=== PATIENT | male | born 1930 | race Caucasian/White ===

== ENCOUNTER 2018-05-30 05:29 | Inpatient (IN) | payer OTHER ==
[~2018-05-30] VITALS: Ht 177.8 cm; Wt 92.1 kg
--- NOTE | ~2018-05-30 | OP ---
[address] [address] OPERATIVE REPORT Name: ARCHIE VIEIRA Room: [address] IN M.R.#: [id number] Admission: 05/30/18 Attend Phys: Juan Nguyen MD Discharge: Date of : 09/[birth year] Report #: [id number] THIS REPORT FOR: //name// CC: Moise Colindres DO REFERRING PHYSICIAN: Kaleigh Ireland DO. PREOPERATIVE DIAGNOSES: Right colon mass with partial small-bowel obstruction. 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 PROCEDURE: Diagnostic laparoscopy converted to laparotomy with lysis of adhesions, extended right hemicolectomy with ileotransverse anastomosis and omental patch, partial omentectomy and peritoneal biopsy with frozen section. SURGEON: Dakota Jean DO. CLINICAL PHLEBOTOMIST: Dr. Judit Broussard. SECOND CMS EXPERT: Dr. Mandie Hendrickson. ANESTHESIA: General endotracheal. ESTIMATED BLOOD LOSS: 25 mL. COMPLICATIONS: None. DESCRIPTION OF PROCEDURE: After obtaining proper consents and discussing risks and complications with the patient and his family, he was taken to the operating room, laid on the supine position, administered general anesthesia. He was then prepped and draped in the usual fashion. Timeout was performed. We confirmed the appropriate patient and procedure. Preoperative antibiotics had been given. SCDs were in place. We then made a small supraumbilical skin incision with a #11 scalpel blade. This was carried down through the skin into the subcutaneous tissue using electrocautery for hemostasis. Once we encountered the fascia, there was noted to be a firm nodular mass in the fascia. We elected to excise this as it was somewhat concerning since the patient had no previous abdominal surgeries. When we excise this, it did involve part of the peritoneum as well. This was sent off for frozen section. While we awaited frozen section, we continued with our laparoscopy since the peritoneum and fascia had already been opened by excising this abdominal wall mass. We then placed 2-0 Vicryl sutures in a [id number] fashion to secure the Alpesh trocar, which was then inserted and insufflation was begun. Once insufflation was complete, [place] [address] OPERATIVE REPORT Name: ARCHIE VIEIRA Room: [address] IN [facility]#: [id number] Admission: 05/30/18 Attend Phys: Juan Nguyen MD Discharge: Date of : 09/28/[birth year] Report #: [id number] visual inspection of the anterior abdominal organs was performed. This immediately revealed what appeared to be multiple peritoneal metastases. There was also some ascites, especially surrounding the liver. In the right lobe of the liver, we identified multiple areas that appeared to be liver metastasis as well. We were then able to also visualize the omentum and the right colon, which also appeared to be firmly matted. The right colon and the abdominal wall, there were attachments, which also appeared to be metastatic in nature and also down in the pelvis, we identified the same appearance of multiple peritoneal metastasis. At this point, I placed another 5 mm trocar in the subxiphoid position and another 5 mm trocar was placed in the left upper quadrant. We then attempted to free up the right colon using electrocautery and blunt dissection, however. As the omentum appeared to be completely matted and attached to the right colon mass, it was very difficult to move the omentum out of the way and after approximately 30 minutes or so of attempting to free this area, we elected to convert to an open procedure. At this point, we stopped the insufflation. All air was released. The trocars were removed. We then extended the supraumbilical incision to meet the subxiphoid incision. This was done using a #10 scalpel blade. Electrocautery was then used to dissect down to the fascia and the fascia and peritoneum were then opened for the entire length of the incision. I then explored the entire abdomen and again identified multiple liver metastases. The gallbladder was markedly distended, but did not appear to be diseased and this was most likely from the patient's n.p.o. status. There was a very firm mass in the right abdominal wall, which was adherent to the abdominal wall as well. The omentum was matted and attached to this mass as well. The terminal ileum was also involved with this mass. At this point, I took down the white line of Toldt along the right pericolic gutter all the way up to the hepatic flexure and then around the hepatic flexure, taking down the omental attachments to the transverse colon between the gastrocolic omentum. Once this area was freed, I then freed the terminal ileum as well using electrocautery and blunt dissection. I was able to bring the entire right colon to the midline and through the incision. At this point, the omentum was firmly attached, so we elected to do a partial omentectomy, removing the upper portion of the omentum, which was attached to the transverse colon using the LigaSure Impact device. Once this was done, we were then able to move the colon more freely and we elected to perform resection at the terminal ileum. An avascular window in the mesentery was opened and a SAMI 60 was fired across this area. I then chose a distal resection margin beyond the right branch of the middle colic artery and the mesentery of the transverse colon was then opened and a SAMI 60 was fired across this as well. I then used the LigaSure Impact device to sequentially clamp and divide the mesentery taking the right branch of the middle colic artery and the ileocolic artery and then the specimen was passed off. Once we did this, we were then preparing for reanastomosis of the terminal ileum to the transverse colon; however, we identified another area where the omentum had what appeared to be another mass firmly adherent to a portion of the transverse colon. I was unable to separate this and was concerned that this would lead to obstruction later on, so we went ahead and [place] [address] OPERATIVE REPORT Name: ARCHIE VIEIRA Room: [address] IN [facility]#: [id number] Admission: 05/30/18 Attend Phys: Juan Nguyen MD Discharge: Date of : 09/28/29 Report #: [id number] beyond the left branch of the middle colic artery and resected another portion of transverse colon along with more omentum and then passed that off as specimen. We then performed the anastomosis of the terminal ileum to the distal transverse colon in a [id number] fashion using a SAMI stapler. We opened an enterotomy in the small bowel and a colotomy in the transverse colon. The SAMI stapler was then inserted and a [id number]-vm-[id number] anastomosis was performed. We then closed the colotomy using a TA 60 stapler. Two crotch sutures of 2-0 Vicryl suture were placed. We then also closed the mesentery using a 2-0 Vicryl suture to prevent any internal hernias from forming. I also placed an omental patch of a small vascularized area of the omentum, was placed over top of the anastomosis and sewed in place using 2-0 Vicryl suture. We then copiously irrigated the abdominal cavity. We then closed the peritoneum and fascia together using a running #1 looped PDS suture. The subcutaneous tissues were closed using 3-0 Vicryl suture. Skin was closed using opal. A Prevena wound VAC dressing was then placed. Sponge, needle and instrument counts were all correct x 3 at the end of the procedure. The patient was then awakened in the operating room and transported to the recovery room in stable condition. By: [id number] Jean DO /lydia
[~2018-05-30 05:29] MED LIST: FLOMAX0.4 MG PO; SIMVASTATIN40 MG PO
[2018-05-30 05:35] VITALS: BP 136/92
[2018-05-30 06:02] LABS: HEMATOCRIT 48.4 % (42.0-52.0); HEMOGLOBIN 15.8 gm/dL (14.0-18.0); MCHC 32.6 g/dL (28.0-37.0); MPV 8.1 fl. (7.2-11.1); NUCLEATED RBCS 0 /100WBC; PLATELET COUNT* 259 thou/uL (150-400); RBC 5.26 mil/uL (4.50-6.00); RDW-CV 13.8 % (10.5-14.5); WBC 11.9 thou/uL (4.0-11.0)
[2018-05-30 06:06] LABS: ANION GAP 10 mmol/L (7-16); BUN 12 mg/dL (7-18); CALCIUM 8.7 mg/dL (8.5-10.1); CHLORIDE 107 mmol/L (98-107); CO2 25 mmol/L (21-32); CREATININE 1.2 mg/dL (0.6-1.3); GLUCOSE 155 mg/dL (70-99); POTASSIUM 4.2 mmol/L (3.5-5.1); SODIUM 142 mmol/L (136-145)
[2018-05-30 06:13] LABS: ALBUMIN 3.5 g/dL (3.4-5.0); ALKALINE PHOSPHATASE 72 U/L (46-116); LIPASE 111 U/L (73-393); SGOT 17 U/L (15-37); SGPT 16 U/L (30-65); TOTAL BILIRUBIN 0.5 mg/dL (<0.1-1.0); TOTAL PROTEIN 6.9 g/dL (6.4-8.2); TROPONIN-I LEVEL <0.06 ng/mL (<0.06)
[2018-05-30 07:08] LABS: URINE CLARITY CLEAR; URINE COLOR YELLOW; URINE PROTEIN 1+ (Negative); URINE SPECIFIC GRAVITY 1.015 (1.005-1.030)
[2018-05-30 07:09] LABS: URINE BILIRUBIN NEGATIVE (Negative); URINE BLOOD TRACE (Negative); URINE GLUCOSE-RANDOM NEGATIVE (Negative); URINE KETONES TRACE (Negative); URINE LEUKOCYTES-REFLEX NEGATIVE (Negative); URINE NITRITE-REFLEX NEGATIVE (Negative); URINE UROBILINOGEN 0.2 E.U./dl (0.2-1.0)
[2018-05-30 07:38] LABS: ABSOLUTE LYMPHOCYTES 1.8 thou/uL (0.8-5.3); ABSOLUTE MONOCYTES 0.2 thou/uL (0.0-1.2); ABSOLUTE NEUTROPHILS 9.9 thou/uL (1.6-8.1); PLATELET ESTIMATE ADEQUATE
[2018-05-30 07:49] VITALS: BP 129/75
[2018-05-30 08:18] VITALS: BP 129/75
--- NOTE | 2018-05-30 10:06 | NUR ---
PATIENT CAME TO THE FLOOR FROM THE ER VIA CART WITH FAMILY. NO COMPLAINTS AT THIS TIME. VITAL SIGNS STABLE ON ROOM AIR. ROOM ORIENTATION AND ADMISSION ASSESSMENT DONE. QUESTIONS ANSWERED FOR PATIENT AND FAMILY. CALL LIGHT IS IN REACH. WILL CONTINUE TO MONITOR.
[2018-05-30] MEDS ORDERED: ATIVAN0.5 MG PO (10:15)
[2018-05-30] MEDS ORDERED: ZOLOFT50 MG PO (10:20)
[2018-05-30] MEDS ORDERED: PRILOSEC 20 MG20 MG PO (10:20)
[2018-05-30 16:38] VITALS: BP 107/64
--- NOTE | 2018-05-30 16:46 | NUR ---
SW attempted to meet with pt but at this time, pt had a room full of visitors. Pt has support from and children. SW to continue to follow to assist with safe dc planning.
--- NOTE | 2018-05-30 17:49 | NUR ---
PATIENT IS ALERT AND ORIENTED VERY PLEASANT, VITAL SIGNS STABLE ON ROOM AIR. NO COMPLAINTS OF ANY KIND TODAY, FAMILY HAS BEEN AT BEDSIDE MOST OF THE DAY. PATIENT IS NPO EXCEPT ICE CHIPS. CALL LIGHT IS IN REACH. WILL CONTINUE TO MONITOR.
[2018-05-30 20:00] VITALS: BP 97/47
[2018-05-31 04:16] LABS: HEMATOCRIT 42.8 % (42.0-52.0); MCH 30.3 pg (26.0-34.0); MCHC 32.3 g/dL (28.0-37.0); MCV 93.9 fL (80.0-100.0); RBC 4.56 mil/uL (4.50-6.00); RDW-CV 13.5 % (10.5-14.5); WBC 7.8 thou/uL (4.0-11.0)
[2018-05-31 04:25] LABS: ALBUMIN 2.6 g/dL (3.4-5.0); CALCIUM 7.7 mg/dL (8.5-10.1); CREATININE 1.1 mg/dL (0.6-1.3); MAGNESIUM 1.8 mg/dL (1.8-2.4); POTASSIUM 3.9 mmol/L (3.5-5.1); TOTAL BILIRUBIN 0.6 mg/dL (<0.1-1.0); TOTAL PROTEIN 5.4 g/dL (6.4-8.2)
[2018-05-31 04:41] LABS: HEMOGLOBIN 13.8 gm/dL (14.0-18.0)
[2018-05-31 05:22] VITALS: BP 111/58
--- NOTE | 2018-05-31 07:46 | NUR ---
pt awake alert and oriented, pt medicated for abdominal pain that he says comes and goes and that improves from rate of 8/10 to 2/10 by this morning, pts blood pressures are soft throughout the night as low as 97/47, continues on iv fluids, pt up to bathroom with standby assist, fall precautions in place
[2018-05-31 10:00] VITALS: BP 115/66
[2018-05-31 12:00] VITALS: BP 94/54
[2018-05-31 16:00] VITALS: BP 113/57
--- NOTE | 2018-05-31 17:58 | NUR ---
PATIENT IS ALERT AND ORIENTED TODAY VERY PLEASANT. FAMILY AT BEDSIDE MOST OF THE DAY. ABLE TO HAVE CLEAR LIQUIDS TODAY, UP WITH STAND BY TO THE RESTROOM, BLOOD PRESSURE HAS BEEN SOFT TODAY PATIENT HAS BEEN ASYMPTOMATIC. SOME PAIN THAT IS CONTROLLED WITH IV PAIN MEDICATIONS. CALL LIGHT IS IN REACH, WILL CONTINUE TO MONITOR.
[2018-05-31 20:20] VITALS: BP 145/76
[2018-06-01 04:34] LABS: HEMOGLOBIN 12.9 gm/dL (14.0-18.0); MCH 30.6 pg (26.0-34.0); MCHC 33.1 g/dL (28.0-37.0); MCV 92.7 fL (80.0-100.0); MPV 8.9 fl. (7.2-11.1); RBC 4.21 mil/uL (4.50-6.00); RDW-CV 13.5 % (10.5-14.5); WBC 6.5 thou/uL (4.0-11.0)
[2018-06-01 04:58] LABS: MAGNESIUM 1.8 mg/dL (1.8-2.4); PHOSPHORUS* 2.5 mg/dL (2.5-4.9); POTASSIUM 3.8 mmol/L (3.5-5.1)
--- NOTE | 2018-06-01 05:07 | NUR ---
PT SLEPT ON AND OFF THIS SHIFT. ASSESSMENT DOCUMENTED. MEDS GIVEN PER E-AUG. IV PATENT, FLUIDS INFUSING. MEDS GIVEN PER E-AUG. PT REPORTED FEELING ANXIOUS AT THE BEGINING OF THIS SHIFT, REQUESTING SOMETHING FOR ANXIETY. NOTIFIED, ORDERS RECIVED. PAIN MEDS GIVEN PER E-AUG. PT DC'D IV THIS SHIFT. NEW IV STARTED, FLUIDS RESUMED. WILL CONTINUE WITH PLAN OF CARE.
[2018-06-01 08:30] VITALS: BP 123/61
--- NOTE | 2018-06-01 15:30 | EKG ---
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
--- NOTE | 2018-06-01 19:49 | NUR ---
Assumed care of pt at 0700, pt in bed relaxing watching TV. Pt up ad gladys throughout this shift, is able to make needs known. Pt expressed to this nurse that he would like to have his Ativan at bedtime tonight. This nurse passed along the info in report to oncoming nurse. Hourly rounding was maintained.
[2018-06-01 22:29] LABS: ANION GAP 9 mmol/L (7-16); BUN 7 mg/dL (7-18); CALCIUM 8.3 mg/dL (8.5-10.1); CHLORIDE 108 mmol/L (98-107); CO2 26 mmol/L (21-32); CREATININE 0.9 mg/dL (0.6-1.3); GLUCOSE 87 mg/dL (70-99); POTASSIUM 3.6 mmol/L (3.5-5.1); SODIUM 143 mmol/L (136-145)
[2018-06-01 22:36] LABS: MAGNESIUM 2.1 mg/dL (1.8-2.4); TROPONIN-I LEVEL <0.06 ng/mL (<0.06)
[2018-06-02] VITALS: BP 103/54; BP 119/59
[2018-06-02 04:00] VITALS: BP 140/71
--- NOTE | 2018-06-02 05:47 | NUR ---
PT SLEPT MOST OF SHIFT. ASSESSMENT DOCUMENTED. MEDS GIVEN PER E-AUG. DURING ASSESSMENT PATIENTS HEARTRATE WAS 30'S PER PULSE OX AND PER RADIAL PALPITATION. PT A&O NO REPORTS OF CHEST PAIN OR DISCOMFORT, BP STABLE, EKG DONE, AND PATIENT PLACED ON TELE MONITOR. DR NOTIFIED, ORDERS RECIEVED. CARDIOLOGY CONSULTED, SPOKE WITH DR SALAS WHO AGREED WITH LABS ORDERED. SURGERY NOTIFIED OF CARDIAC CHANGE. NO REPORTS OF PAIN THIS SHIFT. WILL CONTINUE WITH PLAN OF CARE.
[2018-06-02 09:23] VITALS: BP 140/71
--- NOTE | 2018-06-02 10:27 | EKG ---
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: [facility] : 1930 Requested By: Jose Luis Chakraborty Order Number: [id number] Bob MD: Martin Tomas Measurements Intervals [place] Rate: 50 P: 33 [place]: 179 QRS: 29 QRSD: 106 T: 2 QT: 427 QTc: 390 Interpretive Statements Sinus rhythm Ventricular trigeminy Compared to ECG 05/30/2018 05:40:15 Ventricular premature complex(es) now present Electronically Signed On 06-02-2018 10:27:36 PAPER CONE MAKER by Martin Tomas [email or web address] <ELECTRONICALLY SIGNED> By: Martin Tomas MD, [facility] 06/02/18 1027 17 17 Martin Tomas MD, [facility] /EPI
--- NOTE | 2018-06-02 13:00 | NUR ---
PT.IN SURGERY AND NOT BACK TO FLOOR. CM WILL SEE TOMORROW.
--- NOTE | 2018-06-02 17:38 | NUR ---
PATIENT IS ALERT AND ORIENTED TODAY, PLEASANT. HAD SURGERY TODAY AND HAS BEEN RESTING SINCE COMING UP FROM THE OR. PAIN IS SOMEWHAT CONTROLLED WITH IV PAIN MEDICATION. HAS A WOUND VAC AND ABDOMINAL BINDER ON. CALL LIGHT IS IN REACH, BED ALARM IS ON. WILL CONTINUE TO MONITOR.
[2018-06-02 19:40] VITALS: BP 116/69
[2018-06-03] VITALS: BP 131/64
[2018-06-03 03:45] LABS: HEMATOCRIT 44.5 % (42.0-52.0); HEMOGLOBIN 14.5 gm/dL (14.0-18.0); MCH 30.4 pg (26.0-34.0); MCHC 32.5 g/dL (28.0-37.0); MCV 93.5 fL (80.0-100.0); MPV 8.9 fl. (7.2-11.1); RBC 4.76 mil/uL (4.50-6.00); RDW-CV 13.6 % (10.5-14.5); WBC 10.6 thou/uL (4.0-11.0)
[2018-06-03 04:00] VITALS: BP 120/56
[2018-06-03 04:23] LABS: ANION GAP 12 mmol/L (7-16); BUN 8 mg/dL (7-18); CALCIUM 7.9 mg/dL (8.5-10.1); CHLORIDE 108 mmol/L (98-107); CHOLESTEROL 90 mg/dL (<200); CO2 21 mmol/L (21-32); GLUCOSE 155 mg/dL (70-99); HDL CHOLESTEROL 40 mg/dL (>40); LDL CHOLESTEROL 41 mg/dL (<100); POTASSIUM 3.9 mmol/L (3.5-5.1); SERUM ASSESSMENT Clear; SODIUM 141 mmol/L (136-145); TC:HDL 2.3 Ratio (Not establshd); TRIGLYCERIDE 47 mg/dL (<150); VLDL 9 mg/dL (<40)
--- NOTE | 2018-06-03 06:08 | NUR ---
PT SLEPT MOST OF SHIFT. ASSESSMENT DOCUMENTED. MEDS GIVEN PER E-AUG. IV PATENT, FLUIDS INFUSING. MEDS GIVEN PER E-AUG. PAIN MEDICATION GIVEN ONCE THIS SHIFT PER E-AUG. WOUNDVAC DRESSING INTACT WELL AND BANDAID OVER LAP SITE. ABD BINDER IN PLACE. PT TRIED TO CLIMB OUT OF BED ONCE THIS SHIFT. AT THAT TIME PATIENTS HEART RATE INCREASED TO 170'S BUT WENT BACK DOWN AFTER PATIENT LAYED DOWN. PT DENIED CHEST PAIN AND SOA. ANDERSON IN PLACE DRAINING DEPENDANTLY. TELE MONITOR READING SR WITH PVCS MOST OF SHIFT. WILL CONTINUE WITH PLAN OF CARE.
[2018-06-03 07:45] VITALS: BP 105/60
--- NOTE | 2018-06-03 10:04 | CON ---
[address] [address] CONSULTATION Name: ARCHIE VIEIRA Room: [address] IN M.R.#: [id number] Admission: 05/30/18 Attend Phys: Juan Nguyen MD Discharge: Date of : [birth year] Report #: [id number] THIS REPORT FOR: //name// CC: Juan ALFAROMI [facility] DATE OF SERVICE: 06/02/2018 HISTORY OF PRESENT ILLNESS: The patient is an 87-year-old white male who I was asked to see in the hospital today after he was noted to have an abnormal ECG. History is obtained from the patient. There are no old records. The patient has no previous history of heart disease. He goes to [facility] for his care. He does go for a walk every day. He came to the Emergency Room 2 days ago. Apparently, he awakened during the night with abdominal pain. He vomited. Family members brought him to the Emergency Room. He denied any blood in his vomit. He has had no diarrhea or blood in stool. He was seen by the surgical service. He was felt to have small-bowel obstruction. There is also a colon mass. He is scheduled to undergo surgery. On the monitor, he was noted to have an abnormal ECG. Preop cardiac evaluation was requested. He denies a history of chest pain. He does get short of breath if he exerts himself, but has had no edema. He notes occasional lightheadedness, no palpitations or syncope. PAST MEDICAL HISTORY: He has had knee surgery, prostate implant for cancer, surgery on his right arm. He has a history of hyperlipidemia, but there is no history of high blood pressure or diabetes. He has macular degeneration. He is hard of hearing and has a hearing aid. MEDICATIONS: Include Flomax, simvastatin. ALLERGIES: He has no known drug allergies. FAMILY HISTORY: His father of heart attack in his 40s. SOCIAL HISTORY: He is . He and his live in [place]. He quit smoking years ago. No alcohol abuse. REVIEW OF SYSTEMS: He has had no history of stroke, asthma, peptic ulcer disease, liver disease, kidney disease, psychiatric illness. He has dry skin. PHYSICAL EXAMINATION: GENERAL: Elderly male, lying in bed. He appeared in no acute distress. VITAL SIGNS: He has a blood pressure of 120/60, pulse 60. He is afebrile. HEENT: He is anicteric. Conjunctivae pink. Mucous members moist. NECK: Veins do not appear distended. No carotid bruits[place] [address] CONSULTATION Name: ARCHIE VIEIRA Room: [address] IN [facility]#: [id number] Admission: 05/30/18 Attend Phys: Juan Nguyen MD Discharge: Date of : [birth year] Report #: [id number] CHEST: Clear to auscultation. CARDIOVASCULAR: Regular rate and rhythm. No significant murmur. ABDOMEN: Soft. EXTREMITIES: Had no edema. Posterior tibial pulse 2+ bilaterally. SKIN: Warm, dry. NEUROLOGIC: Nonfocal. LYMPH: No adenopathy. MUSCULOSKELETAL: No joint effusion. LABORATORY DATA: ECG on admission showed a sinus rhythm with nonspecific ST-segment changes. On the monitor, he was noted to have sinus bradycardia with PVCs in a pattern of trigeminy. His workup so far included abdominal films that showed partial small-bowel obstruction. CT scan of the abdomen and pelvis showed possible colon mass, small-bowel obstruction, diverticulitis, gallstones. His lab work, sodium 143, creatinine 0.9. His albumin is 2.6. Troponin 0.06. White blood cell count 6.5, hemoglobin 15.8. IMPRESSION AND RECOMMENDATIONS: 1. Premature ventricular contractions. I would recommend checking an echocardiogram. 2. Bradycardia. I would avoid beta blockers. 3. Hyperlipidemia. The patient is on a statin drug. 4. History of prostate cancer. 5. Hard of hearing. 6. Macular degeneration. 7. Small-bowel obstruction and abdominal mass. The patient was scheduled for laparotomy. The patient appears to have no cardiac contraindication to surgery. However, he will be at risk for cardiac complications because of his advanced age and history of hyperlipidemia. I will recommend no further cardiac evaluation prior to surgery. I would continue to monitor the patient after surgery. <ELECTRONICALLY SIGNED> By: Martin Tomas MD, FACC 06/03/18 1004 0909 0006Martin Tomas MD, FACC /nt
[2018-06-03 12:01] VITALS: BP 95/57
--- NOTE | 2018-06-03 13:24 | NUR ---
CM ASSESSMENT: MET WITH PT AND FAMILY IN ROOM. PT LIVES WITH WHO IS PRIMARILY WC BOUND. PT HAD SURGERY YESTERDAY ON A COLON MASS. PT WALKS APPROX 1 MILE EVERYDAY. HE DOES NOT DRIVE AT NIGHT D/T POOR VISION. PT AND FAMILY AGREE THAT PLAN OF HOME WITH HH INSTEAD OF SNU. PT HAS MEDICARE AND RES Software BENEFITS. PT HAS NOT USED HH IN THE PAST
[2018-06-03 16:00] VITALS: BP 130/71; BP 132/71
--- NOTE | 2018-06-03 16:26 | EKG ---
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1930 Requested By: Dario Broussard Order Number: [id number] Reading MD: Jessee Avila Measurements Intervals [place] Rate: 70 P: 40 RI: 169 QRS: 41 QRSD: 103 T: 137 QT: 401 QTc: 433 Interpretive Statements Sinus rhythm Multiple ventricular premature complexes Borderline low voltage, extremity leads Nonspecific T abnormalities, lateral leads Compared to ECG 06/01/2018 21:18:07 T-wave abnormality now present Electronically Signed On 06-03-2018 16:26:01 QUALITY LAB TECHNICIAN by Jessee Avila [email or web address] <ELECTRONICALLY SIGNED> By: Jessee Avila MD, FACC 06/03/18 1626 Jessee Avila MD, FAC /EPI
--- NOTE | 2018-06-03 16:43 | 2DMMODE ---
[place] [address] 2 D/M-MODE ECHOCARDIOGRAM Name: ARCHIE VIEIRA Room: [address] [facility] IN [facility]#: [id number] Admission: 05/30/18 Attend Phys: Juan Nguyen, Discharge: Date of : [birth year] Date of Service: 06/03/18 1643 Report #: [id number] THIS REPORT FOR: //name// APPROVED REPORT Study performed: 06/03/2018 14:53:13 EXAM: Comprehensive 2D, Doppler, and color-flow Echocardiogram Patient Location: In-Patient Room #: [facility] Status: routine BSA: 2.53 HR: 62 bpm BP: 95/57 mmHg Other Information Study Quality: Fair Technically limited study due to inability to position patient. Indications Abnormal ECG 2D Dimensions IVSd: 10.67 (7-11mm) LVOT Diam: 20.37 (18-24mm) LVDd: 44.69 mm PWd: 9.87 (7-11mm) Ascending Ao: 28.05 (22-36mm) LVDs: 30.31 (25-40mm) Aortic Root: 25.77 mm Volumes Left Atrial Volume (Systole) LA ESV Index: 11.60 mL/m2 Aortic Valve AoV Peak Travis.: 1.26 m/s AO Peak Gr.: 6.34 mmHg LVOT Max P.28 mmHg AO Mean Gr.: 3.48 mmHg LVOT Mean P.27 mmHg LVOT Max V: 1.03 m/s AO V2 VTI: 20.05 cm LVOT Mean V: 0.70 m/s MARJORIE (VTI): 3.21 cm2 LVOT V1 VTI: 19.77 cm Mitral Valve E/A Ratio: 0.77 MV Decel. Time: 211.34 [place] [address] 2 D/M-MODE ECHOCARDIOGRAM Name: ARCHIE VIEIRA Room: [address] IN .R.#: [id number] Admission: 05/30/18 Attend Phys: Juan Nguyen, Discharge: Date of : [birth year] Date of Service: 06/03/18 1643 Report #: [id number] MV E Max Travis.: 0.58 m/s MV PHT: 61.29 ms MVA (PHT): 3.59 cm2 TDI E/Lateral E': 7.25 E/Medial E': 8.29 Medial E' Travis.: 0.07 m/s Lateral E' Travis.: 0.08 m/s Pulmonary Valve PV Peak Travis.: 0.70 m/s PV Peak Gr.: 1.99 mmHg Tricuspid Valve RAP Estimate: 5.00 mmHg TR Peak Gr.: 23.66 mmHg RVSP: 28.66 mmHg PA Pressure: 28.66 mmHg Left Ventricle The left ventricle is normal size. Slight left ventricular dyssynergy possibly due to underlying bundle branch block. There is normal left ventricular wall thickness. Left ventricular systolic function is normal. LVEF is 50-55%. Grade I - abnormal relaxation pattern. Right Ventricle The right ventricle is normal size. The right ventricular systolic function is normal. Atria The left atrium size is normal. The right atrium size is normal. Aortic Valve The aortic valve is normal in structure. No aortic regurgitation is present. There is no aortic valvular stenosis. Mitral Valve The mitral valve is normal in structure. There is no mitral valve regurgitation noted. No evidence of mitral valve stenosis. Tricuspid Valve The tricuspid valve is normal in structure. Mild tricuspid regurgitation. Pulmonic Valve The pulmonary valve is normal in structure. There is no pulmonic [place] [address] 2 D/M-MODE ECHOCARDIOGRAM Name: ARCHIE VIEIRA Room: [address] IN [facility]#: [id number] Admission: 05/30/18 Attend Phys: Juan Nguyen, Discharge: Date of : [birth year] Date of Service: 06/03/18 1643 Report #: [id number] Great Vessels The aortic root is normal in size. IVC is not well visualized. Pericardium There is no pericardial effusion. <Conclusion> The left ventricle is normal size. There is normal left ventricular wall thickness. Left ventricular systolic function is normal. LVEF is 50-55%. Grade I - abnormal relaxation pattern. Slight left ventricular dyssynergy possibly due to underlying bundle branch block. <ELECTRONICALLY SIGNED> By: Jessee Avila MD, FACC 06/03/18 1643 164 164 Jessee Avila MD, FACC /INF
--- NOTE | 2018-06-03 17:57 | NUR ---
ASSESSMENT COMPLETE. PT ALERT AND ORIENTED X4. REPORTS PAIN , ESPECIALLY WITH MOVEMENT. ABDOMINAL BINDER IN PLACE. MIDLINE INCISION DRY/INTACT WITH PREVENA IN PLACE. EKG DONE TODAY, DR MARI REVIEWED. PT ABLE TO TOLERATE SIPS OF CLEAR LIQUIDS DURING THE DAY. NO APPETITE PER PT. DENIES N/V. NURSE TALKED TO PATIENT TWICE TODAY ABOUT TAKING OUT ANDERSON AND PT REFUSED. PT IS SR WITH PVC'S ON THE MONITOR. PT HAS ADEQUATE SATS ON ROOM AIR. VITALS STABLE, AFEBRILE. PT HAS PROCAL INFUSING IN RIGHT HAND. PT IS Q2 TURN. SCD'D IN PLACE. PT IS FALL RISK, BED ALARM ON. PT IS UP ONE ASSIST WITH GAIT AND WALKER. SEE ASSESSMENT AND VITALS FOR OTHER DETAILS. CALL LIGHT WITHIN REACH, WILL CONTINUE PLAN OF CARE
[2018-06-03 20:00] VITALS: BP 118/55
[2018-06-04] VITALS: BP 136/71
[2018-06-04 04:00] VITALS: BP 162/86
--- NOTE | 2018-06-04 04:08 | NUR ---
ASSUMED CARE AT START OF SHIFT PT C/O PAIN UNRESOLVED WITH PO MEDICATION , IV FENTANLY GIVEN AND PT BEGAN TO BECOME VERY FORGETFUL , GETTING OUT OF BED TO ATTEMPT TO VOID WHEN ANDERSON INPLACE PT EASILY RE-ORIENTED TO PLACE AND SITUATION. 02 APPLIED AT 2L DUE TO SAT 91 % . PT REMAINS AWAKEN THROUGHOUT HOURLY ROUNDS, ABD WOUND VAC INTACT. BED ALARM ON FOR SAFETY, WILL CONITUE WITH CURRENT PLAN OF CARE.
[2018-06-04 05:15] LABS: ALBUMIN 2.1 g/dL (3.4-5.0); CALCIUM 7.8 mg/dL (8.5-10.1); CREATININE 0.8 mg/dL (0.6-1.3); PHOSPHORUS* 1.9 mg/dL (2.5-4.9); TOTAL PROTEIN 5.8 g/dL (6.4-8.2)
[2018-06-04 05:59] LABS: ABSOLUTE EOSINOPHILS 0.1 thou/uL (0.0-0.7); ABSOLUTE LYMPHOCYTES 1.4 thou/uL (0.8-5.3); ABSOLUTE MONOCYTES 1.6 thou/uL (0.0-1.2); ABSOLUTE NEUTROPHILS 8.5 thou/uL (1.6-8.1); BASOPHILS 0.1 %; EOSINOPHILS 0.5 %; HEMATOCRIT 41.3 % (42.0-52.0); HEMOGLOBIN 13.6 gm/dL (14.0-18.0); MCH 30.5 pg (26.0-34.0); MCHC 32.8 g/dL (28.0-37.0); MCV 92.8 fL (80.0-100.0); MONOCYTES 13.7 %; NUCLEATED RBCS 0 /100WBC; PLATELET COUNT* 201 thou/uL (150-400); POLYS 73.7 %; RBC 4.45 mil/uL (4.50-6.00); RDW-CV 13.6 % (10.5-14.5); WBC 11.5 thou/uL (4.0-11.0)
[2018-06-04 08:00] VITALS: BP 156/78
[2018-06-04 11:42] LABS: POTASSIUM 3.9 mmol/L (3.5-5.1)
--- NOTE | 2018-06-04 13:33 | NUR ---
PATIENT CALLING OUT STATING HE WAS VOMITTING. THIS NURSE WENT TO SEE PATIENT AND APPROX 100-200MLS OF EMESIS NOTED. PATIENT REMAINS ON CLEAR LIQUID DIET. PRN ZOFRAN GIVEN ORDERED. PATIENT WAS NOTED TO BE VERY FIDGITTY, FAMILY ASKING IF PATIENT COULD HAVE HIS PRN ATIVAN. SPOKE WITH DR. GREWAL FROM SURGERY AND NOTIFIED OF VOMITTING EPISODE. HOLD PO INTAKE AT THIS TIME, CHIP WILL SEE THIS AFTERNOON. PATIENT AND FAMILY NOTIFIED OF PLAN OF CARE. PATIENT STATED HE WAS FEELING BETTER AFTER ZOFRAN.
[2018-06-04 16:49] VITALS: BP 160/98
--- NOTE | 2018-06-04 18:39 | NUR ---
PATIENT UP TO CHAIR THIS AM. IV PROCAL REMAINS INFUSING. PHOSPHURUS GIVEN PO THIS AM FOR LAB VALUE OF 1.9, WILL REPLACE VIA IV NOW THAT PATIENT NPO. JUSTIN DC'D THIS AM PER ORDERS, PATIENT VOIDING WITHOUT DIFFICULTY. NO BM NOTED THIS SHIFT. PATIENT VOMITTED THIS AFTERNOON WHILE EATING CLEAR LIQUID LUNCH. PRN ZOFRAN WAS GIVEN AND SURGERY NOTIFIED. NO MORE VOMITTING EPISODES NOTED. PATIENT TO REMAIN NPO, SURGERY ROUNDED THIS EVENING. ORDERS TO GIVE MOM X 1 AND ABD XRAY IN AM. PATIENT REFUSING ANY PAIN MEDICATION AT THIS TIME. STATED HE WOULD LIKE HIS ANXIETY MEDICATION AT BEDTIME.
[2018-06-05 00:34] VITALS: BP 126/75
[2018-06-05 03:56] VITALS: BP 110/68
[2018-06-05 04:11] LABS: HEMATOCRIT 42.2 % (42.0-52.0); HEMOGLOBIN 13.8 gm/dL (14.0-18.0); MCH 30.3 pg (26.0-34.0); MCHC 32.7 g/dL (28.0-37.0); MCV 92.9 fL (80.0-100.0); MPV 9.2 fl. (7.2-11.1); RBC 4.54 mil/uL (4.50-6.00); RDW-CV 13.6 % (10.5-14.5)
[2018-06-05 04:24] LABS: ALBUMIN 2.1 g/dL (3.4-5.0); CALCIUM 7.9 mg/dL (8.5-10.1); CREATININE 0.8 mg/dL (0.6-1.3); MAGNESIUM 2.1 mg/dL (1.8-2.4); PHOSPHORUS* 3.3 mg/dL (2.5-4.9); POTASSIUM 3.6 mmol/L (3.5-5.1); TOTAL BILIRUBIN 0.6 mg/dL (<0.1-1.0); TOTAL PROTEIN 5.4 g/dL (6.4-8.2)
--- NOTE | 2018-06-05 06:04 | NUR ---
PATIENT SLEPT PART OF THE NIGHT. NEW IV WAS STARTED CHARTED. PATIENT HAD NO NAUSEA OR VOMITING. ABDOMINAL BINDER REMAINS IN PLACE WITH MIDLINE INCISON AND PROVENA IN PLACE. PATIENT WAS GIVEN PAIN MEDICINE ONCE THIS SHIFT. WILL CONTINUE TO MONITOR.
[2018-06-05 08:00] VITALS: BP 115/63
--- NOTE | 2018-06-05 11:32 | NUR ---
Orders given for pharmacy to dose TPN per Dr. Monroe. Per notes patient has intractable abdominal pain 2/2 partial SBO, post hemicolectomy on 06/02. Per calculations used patient's acutal weight of 92.1 kg with a stress factor of 1.3. There is nothing in this stay medical records of renal impairment so will not concentrate mixture. Calculations per approved protocol state patient should have Protein = 138 G/24 hours, CHO = 271 G/24 hours, and Fats = 51.7 G/24 hours. The plan per protocol will be to start standard TPN for patient at 40 ml/hr and if tolerated will increase to goal rate of 65 mls/hr. Thank you for this consult.
[2018-06-05 15:50] VITALS: BP 122/70
--- NOTE | 2018-06-05 16:09 | NUR ---
RIGHT BASILIC VESSEL ACCESSED FOR 5 VIETNAMESE DUAL LUMEN PICC. LINE PRE-TRIMMED TO 41 CM AND ADVANCED TO THE ZERO PETEY WITH NO RESISTANCE MET. UPPER ARM CIRCUMFERENCE ABOVE INSERTION SITE= 12". SHERLOCK MAGNET AND 3CG CONFIRMATION OF TIP TERMINATION IN THE CAVO-ATRIAL JUCTION. STYLET REMOVED, INSERTION SITE DRESSED AND REPORT GIVEN TO KEILY CASTRO.
[2018-06-05 16:23] LABS: POTASSIUM 3.9 mmol/L (3.5-5.1)
--- NOTE | 2018-06-05 17:52 | NUR ---
PT SOMEWHAT PROGRESSING TOWARDS GOALS THIS SHIFT. STARTED ON IV REGLAN TO PROMOTE GASTRIC MOTILITY. CONTINUES NPO THIS SHIFT. PT WEAK AND TIRED THIS SHIFT. PICC LINE STARTED THIS SHIFT FOR TPN ADMINISTRATION. PT MET WITH ONCOLOGISTS THIS SHIFT AND DISCUSSED OPTIONS WITH CANCER TREATMENT. NO OTHER CONCERNS AT THIS TIME. CLWR. WCTM.
[2018-06-06 00:46] VITALS: BP 121/73
[2018-06-06 04:00] VITALS: BP 146/71
[2018-06-06 05:45] LABS: HEMATOCRIT 40.3 % (42.0-52.0); HEMOGLOBIN 13.4 gm/dL (14.0-18.0); MCH 30.5 pg (26.0-34.0); MCHC 33.2 g/dL (28.0-37.0); MCV 92.1 fL (80.0-100.0); MPV 8.8 fl. (7.2-11.1); RBC 4.38 mil/uL (4.50-6.00); RDW-CV 13.3 % (10.5-14.5); WBC 7.1 thou/uL (4.0-11.0)
--- NOTE | 2018-06-06 05:58 | NUR ---
PATIENT SLEPT MOST OF THE NIGHT. TPN WAS STARTED AT 40 ML/HR. PATIENT HAS HAD NO COMPLAINTS OF PAIN. ABDOMINAL BINDER REMAINS IN PLACE WITH MIDLINE INCISION WITH PROVENA WOUND VAC IN PLACE. WILL CONTINUE TO MONITOR.
[2018-06-06 06:14] LABS: CALCIUM 7.8 mg/dL (8.5-10.1); CREATININE 0.8 mg/dL (0.6-1.3); MAGNESIUM 2.1 mg/dL (1.8-2.4); POTASSIUM 3.6 mmol/L (3.5-5.1); TOTAL BILIRUBIN 0.6 mg/dL (<0.1-1.0); TOTAL PROTEIN 5.3 g/dL (6.4-8.2)
--- NOTE | 2018-06-06 12:05 | PATH ---
[address] [address] PATHOLOGY RPT PROCEDURE Name: ARCHIE TERAN Room: [address] IN M.R.#: [id number] Admission: 05/30/18 Date of : [birth year] Discharge: Report #: [id number] Path Case #: [id number] LCA Accession Number: [id number] . 01 Material submitted: . PART A: ABDOMINAL WALL MASS PART B: RIGHT COLON AND ADDITIONAL TRANSVERSE COLON AND OMENTUM . 01 Clinician provided ICD-10: K56.609 E44.0 . 01 Clinical history: . Right colon mass with peritoneal and omental mets. . 02 Diagnosis: A. 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 . B. RIGHT COLON AND ADDITIONAL TRANSVERSE COLON AND OMENTUM: - SEGMENT OF TERMINAL ILEUM, APPENDIX AND COLON WITH ULCERATED MUCOGENIC COLONIC ADENOCARCINOMA, WELL DIFFERENTIATED, FORMING A MASS IN CECUM AND INVOLVING ILEOCECAL VALVE AND APPENDICEAL ORIFICE MEASURING 3.0 X 3.0 CM, WITH TRANSMURAL INVASION TO EXTENSIVELY INVOLVE INKED FREE SEROSAL SURFACE, WITH PROXIMAL AND DISTAL RESECTION MARGINS FREE OF INVOLVEMENT. - AT LEAST FOUR OF FOUR PERICOLIC LYMPH NODES WITH METASTATIC ADENOCARCINOMA AND TOO NUMEROUS TO COUNT FATTY DEPOSITS OF TUMOR INCLUDING AT LEAST TWELVE, ONE OF WHICH INVOLVES MESENTERIC RESECTION MARGIN, AND MANY WITH FREE SEROSAL SURFACE INVOLVEMENT. 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 LBQ/06/04/2018 . 02 Comment: SYNOPTIC FOR COLON AND RECTUM . Procedure ___ Other: Extended right hemicolectomy including additional transverse colon and omentum . Tumor Site ___ Cecum, ileocecal valve and appendiceal orifice . Tumor Size Greatest dimension: 3 cm . [place] [address] PATHOLOGY RPT PROCEDURE Name: ARCHIE TERAN Room: [address] [facility] IN [facility]#: [id number] Admission: 05/30/18 Date of : 09/28/29 Discharge: Report #: [id number] Path Case #: [id number] ___ Not identified . Histologic Type ___ Adenocarcinoma . Histologic Grade ___ G1: Well differentiated . Tumor Extension ___ Tumor invades the visceral peritoneum . Margins Proximal Margin ___ Uninvolved by invasive carcinoma + Distance of tumor from margin: 7.2 cm . Distal Margin ___ Uninvolved by invasive carcinoma + Distance of tumor from margin: 36.5 cm (includes additional transverse colon) . Mesenteric Margin ___ Involved by invasive carcinoma . Treatment Effect ___ No known presurgical therapy . Lymphovascular Invasion ___ Not identified . Perineural Invasion ___ Not identified . + Tumor Budding + ___ Number of tumor buds in 1 "hotspot" field (total number in area=0.785 mm2): 1 + ___ Low score (0-4) . + Type of Polyp in Which Invasive Carcinoma Arose + ___ Tubular adenoma . Tumor Deposits ___ Present Number of deposits: Too numerous to count including at least 12 . Regional Lymph Nodes Number of Lymph Nodes Involved: At least 4 . Number of Lymph Nodes Examined: At least 4 [place] [address] PATHOLOGY RPT PROCEDURE Name: ARCHIE TERAN Room: [address] IN [facility]#: [id number] Admission: 05/30/18 Date of : [birth year] Discharge: Report #: [id number] Path Case #: [id number] . PATHOLOGIC STAGE CLASSIFICATION (pTNM, AJCC 8TH EDITION) . Primary Tumor (pT) ___ pT4a: Tumor invades through the visceral peritoneum (including gross perforation of the bowel through tumor and continuous invasion of tumor through areas of inflammation to the surface of the visceral peritoneum) . Regional Lymph Nodes (pN) ___ pN2: Four or more regional lymph nodes are positive . Distant Metastases (pM) ___ pM1: Metastasis to one or more distant sites or organs or peritoneal metastasis is identified Specify site: Multiple omental nodules and abdominal wall metastasis . . The lymph node staging provided in the synoptic (pN2) is likely higher as many of the fatty tumor deposits may represent obliterated lymph nodes involved by tumor. There are too many to count fatty deposits of tumor including many microscopic foci seen in sections submitted of grossly palpated nodules as well as a focus involving the inked mesenteric resection margin (B20). The distance of the tumor from the distal margin provided in the synoptic includes the additional segment of transverse colon also submitted. The dominant mass in the omentum which measured 3 x 3 cm is tumor adhesed to the transverse colon where it invades directly into the external aspect of the muscularis propria. . B4 reviewed [address] Dr. Pasquale Lockwood who agrees with the diagnosis. (MEAGAN/emerita; 06/04/2018) . 02 Electronically signed: . Elmer Pacheco MD, Pathologist NPI- [id number] . 01 Gross description: . A. Received fresh from the OR accompanied by a label marked "Archie Teran, abdominal wall mass" and consists of two fragments of firm, yellow to wei-manrique tissue having aggregate greatest dimensions of 1.8 x 1.[address] Jean notes that laparoscopically there is a suspicion of widely disseminated colorectal carcinoma with a mass in the cecal region and this mass was found in the anterior subcutaneous tissues and he requests intraoperative consultation. The surfaces are inked black and the larger fragment is bisected with one-half submitted for frozen studies and the remainder of that tissue frozen submitted in cassette A1. The remainder of the entire specimen is submitted in cassette A2. (MEAGAN/emerita; 06/03/2018) . [address] [address] PATHOLOGY RPT PROCEDURE Name: ARCHIE TERAN Room: M.315-P ADM IN M.R.#: [id number] Admission: 05/30/18 Date of : 09/28/29 Discharge: Report #: [id number] Path Case #: [id number] B. The specimen is received in formalin, labeled "Jennifersulaimanreba Archie, right colon and additional transverse colon and omentum" and consists of a right hemicolectomy specimen consisting of terminal ileum (5.7 cm in length and 3.4 cm in diameter), appendix (7.5 cm in length and ranging from 0.5-0.8 cm in diameter), ascending colon (34.0 cm in length and ranging from 2.0-4.5 cm in diameter), pericolic fat up to 7.0 cm, and omentum (19.0 x 11.2 cm). The specimen is opened and placed back in formalin for overnight fixation. (SDY; 06/02/2018) . After overnight fixation there is a pink-manrique, ulcerated, and friable mass occupying the ileocecal valve and cecum which measures 3.0 x 3.0 cm and extends from the margins as follows: Greater than 30 cm distal, 7.2 cm proximal, and 1.0 cm mesenteric. The cecal serosa is wei-manrique with adhesions. The rest of the serosa is wei-manrique and smooth. There is a firm omental mass, 3.0 cm from the cecal mass which measures 4.5 x 3.7 x 1.9 cm. The omental mass is inked orange, the cecal serosa blue, and the mesenteric margin black. Sectioning through the mass reveals obliteration of the muscular wall with invasion into the mesocolon to a maximum depth of 2.2 cm which grossly appears to abut the blue inked serosa. The mass grossly approaches the appendiceal orifice. Sectioning through the firm omental mass reveals multiple nodules/lymph node candidates suspicious for metastasis ranging from 0.5 cm to 2.5 cm. There are multiple sessile manrique-brown polyps in the cecum/ascending colon which measure between 0.5 x 0.2 cm and 1.8 x 0.6 cm with the nearest 2.5 cm distal from the cecal mass. Sectioning the appendix reveals a pinpoint lumen and no mucosal lesions. . Also received is an additional segment of large intestine measuring 6.5 cm in length and 2.5 cm in diameter with attached pericolic fat up to 3.0 cm and omentum (18.5 x 17.0 cm). The mucosa is pink-manrique with no masses or lesions. The omentum is firm/possible mass at the site of attachment to the large intestine which measures 3.0 x 3.0 cm. This area is inked black and sectioning reveals the firm area/mass abuts the black inked omentum and serosa. Sectioning through the rest of the omentum reveals multiple nodules/area suspicious for metastasis consistent with the previously described nodules/lymph node candidates in the above paragraph. [employer] sections are submitted as follows: . B1: Proximal margin B2: Distal margin B3: Appendiceal orifice B4: Mass deepest invasion grossly abutting blue ink serosa B5-B6: Additional mass B7: Mass transition to terminal ileum B8: Mass transition to ascending colon B9: [employer] largest suspicious nodule/lymph node candidate B10: [employer] lymph node candidate B11: 2 bisected lymph node candidates, [place] [address] PATHOLOGY RPT PROCEDURE Name: ARCHIE TERAN Room: [address] IN ..#: [id number] Admission: 05/30/18 Date of : [birth year]/28/[birth year] Discharge: Report #: [id number] Path Case #: [id number] B12: One bisected lymph node candidate B13: One bisected lymph node candidate B14: One bisected lymph node candidate B15: One serially sectioned lymph node candidate B16: One trisected lymph node candidate B17: One bisected lymph node candidate B18: One bisected and one intact lymph node candidate (intact inked blue) B19: [employer] from one lymph node candidate B20: Nearest mesenteric margin, perpendicular B21: Appendix B22: Sessile polyp nearest mass B23: 2 additional sessile polyps, one inked blue B24: Both margins additionally received segment of large intestine B25-B26: Relationship of omental nodule to serosa/mucosa B27-B28: [employer] omental nodules (SDY; 06/03/2018) . Frozen Section Diagnosis: (Jaylyn Pacheco M.D.) . A. ABDOMINAL WALL MASS: - ADENOCARCINOMA TYPICAL OF COLORECTAL PRIMARY. . RESULTS A note is entered into the medical record and results are relayed directly to Dr. Jean in the operating room. (MEAGAN/db; 06/03/2018) . Frozen section performed at [facility], [address] [place] [address]. SYU/LBQ . 02 Pathologist provided ICD-10: C18.0, C79.89, C77.2 . 02 CPT . 637868, 708700, 237233, 735085 Specimen Comment: A courtesy copy of this report has been sent to Specimen Comment: [phone], , . Specimen Comment: Report sent to ,DR PEREZ / DR PATEL Specimen Comment: A duplicate report has been generated due to demographic updates. Performed at: 01 [facility] [address] [place] [address] [address], [place], [place] [id number] MD Destin Bob MD Phone: [phone] Performed at: [address] [place] [address] [address], [place], [place] [id number] [address] [address] PATHOLOGY RPT PROCEDURE Name: ARCHIE TERAN Room: [address] [facility] IN M.R.#: [id number] Admission: 05/30/18 Date of : 09/28/[birth year] Discharge: Report #: [id number] Path Case #: [id number] MD Elmer Pacheco MD Phone: [phone]
[2018-06-06 12:22] VITALS: BP 136/70
--- NOTE | 2018-06-06 13:44 | NUR ---
re: pharmacy to manage TPN. Advancing rate to goal rate of 65 ml/hr. Noted "low" calcium with adjustment for low albumin. Will follow. thank you.
--- NOTE | 2018-06-06 15:10 | NUR ---
CHANDLER continuing to follow to assist with safe dc planning. CHANDLER discussed with Dr tSokes about possible need for TPN and Dr Stokes anticipates that pt will not need TPN at time of dc. SW to continue to follow.
[2018-06-06 15:53] VITALS: BP 144/84
[2018-06-06 20:00] VITALS: BP 159/84
[2018-06-07 00:15] VITALS: BP 138/78
[2018-06-07 04:00] VITALS: BP 152/66
[2018-06-07 05:32] LABS: CALCIUM 8.3 mg/dL (8.5-10.1); CREATININE 0.9 mg/dL (0.6-1.3); PHOSPHORUS* 3.8 mg/dL (2.5-4.9); POTASSIUM 3.6 mmol/L (3.5-5.1)
--- NOTE | 2018-06-07 06:39 | NUR ---
SEB APTIENT CARE AT 1900. PATIENT ALERT AND ORIENTED TIMES FOUR. CAN BE FORGETFUL AND DOES FORGET HIS LIMITATIONS UPON FIRST WAKING. USES URINAL. PICC PATENT TO TPN AND BLOOD DRAWS. MINOR COMPLAINTS OF PAIN NOTED, CONTROLLED WITH ORAL MEDICATIONS. FALL RISK PRECAUTION IN PLACE, HOURLY ROUNDING COMPLETED DOCUMENTED. HOTEL FRONT OFFICE MANAGER COMPLETED CHARTED.
[2018-06-07 12:00] VITALS: BP 143/71
--- NOTE | 2018-06-07 13:56 | NUR ---
RE: PHARMACY TO MANAGE TPN WILL CONTINUE WITH SAME TPN 06/06/18. PHARMACY WILL CONTINUE TO FOLLOW AND MONITOR. PT AT GOAL RATE. THANK YOU.
[2018-06-07 16:00] VITALS: BP 133/62
--- NOTE | 2018-06-07 18:23 | NUR ---
PATIENT HAD A VOMITTING EPISODE THIS AM AFTER MORNING MEDS AND SIP OF WATER. DR. GREEN WAS ROUNDING ON PATIENT AT THAT TIME. REGLAN INCREASED, ABX XRAY ORDERED, AND SUPPOSITORY TO BE GIVEN. NO MORE VOMITTING EPISODES NOTED, PATIENT REMAINS NPO EXCEPT SIPS WITH MEDS. TPN REMAINS INFUSING TO PICC LINE. MULTIPLE FAMILY MEMBERS REMAIN AT BEDSIDE. PATIENT DID HAVE A SMALL BM THIS SHIFT, DR. BUCHANAN AWARE. DR. BUCHANAN AND DR. GREEN NOTIFIED OF ABX XRAY RESULTS. PATIENT VOIDING PER URINAL.
[2018-06-07 19:30] VITALS: BP 94/64
[2018-06-08 00:21] VITALS: BP 123/69
--- NOTE | 2018-06-08 00:25 | NUR ---
INITAL ASSEMENT COMPLETED AT 1930. PT CONFUED AND IMPULSIVE. PT CLIMBING OUT OF BED MULTIPLE TIMES PER HOUR. TECH AT BEDSIDE TO PREVENT PT FROM FALLING. PT ORIENTED TO PERSON ONLY. FAMILY CAME TO SEE PT AT 1999 AND ATTEMPTED TO ORIENT PT WITHOUT SUCCESS. PT UNABLE TO UNDERSTAND OR FOLLOW INSTRUCTIONS. BED ALARM ON, SITTER AT BEDSIDE.
[2018-06-08 04:26] VITALS: BP 109/70
[2018-06-08 05:19] LABS: HEMATOCRIT 36.1 % (42.0-52.0); MCH 30.8 pg (26.0-34.0); MCHC 33.3 g/dL (28.0-37.0); MCV 92.3 fL (80.0-100.0); MPV 9.2 fl. (7.2-11.1); RBC 3.91 mil/uL (4.50-6.00); RDW-CV 13.2 % (10.5-14.5); WBC 7.1 thou/uL (4.0-11.0)
[2018-06-08 06:07] LABS: CALCIUM 7.9 mg/dL (8.5-10.1); MAGNESIUM 2.1 mg/dL (1.8-2.4); PHOSPHORUS* 3.9 mg/dL (2.5-4.9); POTASSIUM 3.7 mmol/L (3.5-5.1); TOTAL BILIRUBIN 0.5 mg/dL (<0.1-1.0); TOTAL PROTEIN 5.3 g/dL (6.4-8.2)
--- NOTE | 2018-06-08 06:19 | NUR ---
PT CONFUSED RESTLESS AND IMPULSIVE DURING ENTIRE SHIFT. ONE TO ONE TECH AT BEDSIDE TO PREVENT PT FROM PULLING OFF MONITOR OR PULLING OUT PICK LINE. PT DISROBING AND ATTEMPTING TO CLIMB OUT OF BED DURING ENTIRE SHIFT. PT UNSTEADY. PT HIGH FALL RISK. NO INJURY DURING NIGHT DUE TO ONE ON ONE SITTER.
[2018-06-08 07:40] VITALS: BP 126/63
[2018-06-08 11:58] VITALS: BP 131/68
--- NOTE | 2018-06-08 11:59 | NUR ---
re: PHARMACY TO MANAGE TPN PLAN TO CONTINUE SAME TPN TODAY. CORRECTED CALCIUM DUE TO LOW ALBUMIN IS WITHIN GOAL. PHARMACY WILL CONTINUE TO FOLLOW.
--- NOTE | 2018-06-08 16:55 | NUR ---
PATIENT CONFUSED AT TIMES THIS SHIFT. PATIENT APPEARRED VERY TIRED MOST OF THE DAY, LOTS OF FAMILY AT BEDSIDE. TPN REMAINS INFUSING, NPO EXCEPT MEDS. PATIENT GIVEN SUPPOSITORY THIS AM, SMALL BM NOTED. ZOSYN STARTED FOR ABD XRAY RESULTS. SURGERY AND DR. GREEN AWARE OF RESULTS. TURNED Q2. UP WITH THERAPY AMBULATING IN HALLS. PATIENT PLACED BACK ON O2 2L FOR SAT 88-91% WHILE SLEEPING OFF AND ON. ACCUCHECKS REAMIN Q6. CARDIAC CONTINUES TRACING SR WITH PVC'S.
[2018-06-08 17:08] VITALS: BP 151/72
[2018-06-09] VITALS (7 sets, daily range): BP systolic 97–161; BP diastolic 63–74
[2018-06-09 05:29] LABS: HEMATOCRIT 34.5 % (42.0-52.0); HEMOGLOBIN 11.5 gm/dL (14.0-18.0); MCH 30.7 pg (26.0-34.0); MCHC 33.4 g/dL (28.0-37.0); MCV 91.7 fL (80.0-100.0); MPV 9.1 fl. (7.2-11.1); RBC 3.76 mil/uL (4.50-6.00); RDW-CV 13.1 % (10.5-14.5); WBC 6.4 thou/uL (4.0-11.0)
[2018-06-09 05:51] LABS: CALCIUM 7.9 mg/dL (8.5-10.1); MAGNESIUM 2.1 mg/dL (1.8-2.4); POTASSIUM 3.8 mmol/L (3.5-5.1); TOTAL BILIRUBIN 0.5 mg/dL (<0.1-1.0); TOTAL PROTEIN 5.3 g/dL (6.4-8.2)
--- NOTE | 2018-06-09 07:33 | NUR ---
PT RECEIVED BENADRYL AND MELATONIN AT HS AND SLEPT WELL OVERNIGHT. AWAKENED WITH MEDS AND CARES, VOIDING PER URINAL AND BACK TO SLEEP. NO N/V THIS SHIFT. PREVANA WOUND VAC ON AND OPERATING TO MIDLINE ABD INCISION. RUE DL PICC, TPN INFUSING, ABX ORDERED. TAKING PILLS WITH SIPS WITHOUT DIFFICULTY. ABD BINDER INTACT. TELE SR. ACCUCHECKS DONE ORDERED. AM LABS DRAWN. BED ALARM ON FOR SAFETY, PT SETTING IT OFF ONLY ONCE OR TWICE OVERNIGHT.
--- NOTE | 2018-06-09 15:19 | NUR ---
SW met with pt, pt , and pt dtr to follow up and discuss dc planning. Pt ASSINIBOINE AND [place] but was pleasant and alert, oriented, sitting up in chair. SW discussed and provided HH options list and discussed possible need for DME. SW noted pt may not need TPN at dc, will follow whether pt will need IV abx, walker (pt said she thought they had one but will check to see if they need a new one), and/or whether he would need SNF vs HH at dc. SW to continue to follow to assist with safe dc planning.
--- NOTE | 2018-06-09 16:56 | NUR ---
PATIENT SAT UP IN CHAIR THIS AM AFTER ABD XRAY. DR. CARBALLO REMOVED MIDLINE WOUND VAC, INCISION D/I, YELITZA NOTED. TPN AND SCHED ABX REMAIN INFUSING. NO COMPLAINTS OF PAIN THIS SHIFT. PATIENT HAD BM THIS AM. TOLERATING SMALL AMOUNT OF CLEAR LIQUIDS. DR. CARBALLO AWARE OF ABD XRAY RESULTS FROM THIS AM. SLEEPING OFF AND ON THIS SHIFT, TURNED Q2.
[2018-06-10 04:50] VITALS: BP 165/88
[2018-06-10 05:52] LABS: HEMATOCRIT 36.9 % (42.0-52.0); HEMOGLOBIN 12.1 gm/dL (14.0-18.0); MCH 30.2 pg (26.0-34.0); MCHC 32.8 g/dL (28.0-37.0); MCV 92.1 fL (80.0-100.0); MPV 8.5 fl. (7.2-11.1); RBC 4.01 mil/uL (4.50-6.00); RDW-CV 13.2 % (10.5-14.5); WBC 7.5 thou/uL (4.0-11.0)
[2018-06-10 06:02] LABS: CALCIUM 8.2 mg/dL (8.5-10.1); CREATININE 0.9 mg/dL (0.6-1.3); POTASSIUM 3.9 mmol/L (3.5-5.1)
--- NOTE | 2018-06-10 06:11 | NUR ---
PT DID NOT SLEEP WELL LAST NIGHT AFTER BENADRYL AND MELATONIN. AWAKE AND RESTLESS MUCH OF THE NIGHT, SETTING BED ALARM OFF SEVERAL TIMES. EASILY REDIRECTED BACK TO REST MOST TIMES HOWEVER. TPN INFUSING PER RPICC ORDERED, ABX GIVEN DIRECTED. TELE SR. MIDLINE ABD INCISION WITH YELITZA WELL APPROXIMATED, ABD BINDER IN PLACE. USING URINAL TO VOID, INCONTINENT EPISODE. NO BM OVERNIGHT. NO N/V THIS SHIFT, TOLERATING SIPS OF CLEARS AND ORAL MEDS.BED ALARM ON FOR SAFETY OVERNIGHT. CALL LITE IN EASY REACH. AM LABS DRAWN. ABD XRAY TO BE DONE TODAY.
[2018-06-10 11:06] VITALS: BP 137/75
[2018-06-10 12:00] VITALS: BP 127/72
[2018-06-10 16:00] VITALS: BP 116/96
--- NOTE | 2018-06-10 17:47 | NUR ---
PATIENT HAS BEEN ALERT TODAY, CONFUSED AT TIMES AND AGITATED. FAMILY HAS BEEN AT BEDSIDE MOST OF THE DAY. PATIENT WALKED WITH NURSE IN THE HALLWAY THIS AFTERNOON. STEADY ON FEET TO START BUT BECAME WEAK. TPN IS RUNNING IN RIGHT UPPER ARM. VITAL SIGNS STABLE ON ROOM AIR. CALL LIGHT IS IN REACH, BED ALARM AND CHAIR ALARM IN PLACE. WILL CONTINUE TO MONITOR.
[2018-06-10 20:04] VITALS: BP 171/72
--- NOTE | 2018-06-10 20:30 | NUR ---
PT CONFUSED, CONTINUES TO TRY TO GET OUT OF BED, FUSSY AND IMPULSIVE. STAFF MEMBER SITTING AT BEDSIDE TO KEEP PT SAFE AND CALM IN BED AFTER FINDING PT STANDING AT SIDE OF BED WITH IV PULLED APART. MEDICATION GIVEN ORDERED.
--- NOTE | 2018-06-11 06:35 | NUR ---
PT HAS NOT SLEPT MUCH OVERNIGHT, HAS BEEN FUSSY, IMPULSIVE, CONFUSED, WITH HALLUCINATIONS. NO BM OVERNIGHT. NO CO PAIN, TOLERATING MEDS, PUDDING AND WATER WITHOUT EMESIS OR CO NAUSEA. MIDLINE INCISION YELITZA INTACT, SHAMA. ABD BINDER OFF AT PRESENT-NEW ONE OBTAINED FROM CS DUE TO SOILING. AM LABS DRAWN. TPN INFUSING DAWIT DL PICC, ABX GIVEN ORDERED. INCONTINENT URINE AND USING URINAL WITH ASSIST AT TIMES. SITTER AT BEDSIDE, BED ALARM ON FOR SAFETY.
[2018-06-11 06:55] LABS: CALCIUM 7.9 mg/dL (8.5-10.1); CREATININE 0.9 mg/dL (0.6-1.3); PHOSPHORUS* 3.6 mg/dL (2.5-4.9); POTASSIUM 3.7 mmol/L (3.5-5.1)
[2018-06-11 07:50] VITALS: BP 150/73
--- NOTE | 2018-06-11 12:08 | NUR ---
EMR TRAINER SPOKE TO THE PATIENT'S SPOUSE TO DISCUSS DISCHARGE PLANNING NEEDS AND SKILLED AT D/C PER THE PHYSICIANS RECOMMENDATIONS. PHYSICIAN INFORMS THAT THE PATIENT MAY BE READY TO D/C SATURDAY. PATIENT'S SPOUSE INFORMS THAT SHE WOULD LIKE A REFERRAL SENT TO [facility], THE FACILITY IS DOWN THE STREET FROM THE PATIENT'S HOME. D/C FLIGHT SURGEON CONTACTED LISA WITH [facility] AND LEFT A MESSGAE TO INFORM OF THE REFERRAL FOR SKILLED, AND FAXED THE PATIENT'S FACESHEET, H&P, VITALS, LABS, MED LIST, AND PT NOTES. D/C FLIGHT SURGEON TO FAX UPDATED PT NOTES WHEN AVAILABLE. CM WILL REMAIN AVAILABLE TO ASSIST AND FOLLOW NEEDED.
[2018-06-11 13:29] LABS: URINE BILIRUBIN NEGATIVE (Negative); URINE BLOOD NEGATIVE (Negative); URINE CLARITY CLEAR; URINE COLOR YELLOW; URINE GLUCOSE-RANDOM NEGATIVE (Negative); URINE KETONES NEGATIVE (Negative); URINE LEUKOCYTES-REFLEX NEGATIVE (Negative); URINE NITRITE-REFLEX NEGATIVE (Negative); URINE PROTEIN NEGATIVE (Negative); URINE UROBILINOGEN 0.2 E.U./dl (0.2-1.0)
[2018-06-11 16:00] VITALS: BP 136/76
--- NOTE | 2018-06-11 17:52 | NUR ---
PATIENT RESTING IN BED. PATIENT IS UP WITH ASSIST WITH GAITBELT, UNSTEADY GAIT. PATIENT IS CONFUSED AND IS HALLUCINATING. PATIENT HAS BEEN IMPULSIVE AND RESTLESS BUT NOT COMBATIVE. PATIENT HAS SITTER IN ROOM. PATIENT HAS POOR APPETITE BUT IS TOLERATING FULL LIQUID DIET. PATIENT HAD SEVERAL LOOSE/LIQUID STOOLS TODAY. PATIENT DENIES ANY NEEDS AT THIS TIME. WILL CONTINUE TO MONITOR.
--- NOTE | 2018-06-12 05:54 | NUR ---
VITALS WNL. SEE MAR. SEE CHARTING. FALL PRECAUTIONS IN PLACE. HOURLY ROUNDING FOR SAFETY.
[2018-06-12 09:45] VITALS: BP 130/66
[2018-06-12 13:58] LABS: BE 1.4 mmol/L (-2 to +3); HCO3 26.1 mmol/L (22.0-26.0); PCO2 41.6 mmHg (35.0-45.0); PO2 71.6 mmHg (75.0-100.0); pH 7.416 (7.340-7.450)
[2018-06-12 15:43] VITALS: BP 94/61
[2018-06-12 16:30] VITALS: BP 124/61
--- NOTE | 2018-06-12 18:46 | NUR ---
PATIENT RESTING IN BED. PATIENT MORE ORIENTED TODAY, FORGETFUL AT TIMES. PATIENT HAS SLEPT MOST OF DAY. PATIENT DID WORK WITH THERAPIES TODAY. PATIENT HAS POOR APPETITE, ATE A FEW YORUBA FRIES AND JELLO TODAY. TPN IS RUNNING ORDERED. PATIENT DENIES ANY PAIN. PATIENT HAS LOOSE BOWEL MOVEMENT THIS AFTERNOON. PATIENT DENIES ANY NEEDS AT THIS TIME. CALL LIGHT WITHIN REACH. BED ALARM ON. WILL CONTINUE TO MONITOR.
[2018-06-12 20:00] VITALS: BP 148/83
[2018-06-13 04:24] LABS: HEMATOCRIT 38.1 % (42.0-52.0); HEMOGLOBIN 12.4 gm/dL (14.0-18.0); MCH 29.9 pg (26.0-34.0); MCHC 32.5 g/dL (28.0-37.0); MCV 91.9 fL (80.0-100.0); MPV 9.3 fl. (7.2-11.1); RBC 4.14 mil/uL (4.50-6.00); RDW-CV 13.1 % (10.5-14.5); WBC 10.5 thou/uL (4.0-11.0)
[2018-06-13 04:34] LABS: CALCIUM 8.2 mg/dL (8.5-10.1); MAGNESIUM 2.2 mg/dL (1.8-2.4); PHOSPHORUS* 3.9 mg/dL (2.5-4.9); POTASSIUM 4.2 mmol/L (3.5-5.1)
--- NOTE | 2018-06-13 05:00 | NUR ---
ASSESSMENT: PT REMAIN ALERT AND ORIENT TIMES THREE, CAN BE FORGETFUL. PT HAS NOT SLEPT TIMES THREE DAYS, DID SLEEP TONIGHT VERY WELL AFTER TAKING SCHEDULED HALDOL, TRAMADOL, ZOLPIDEM AND MELATONIN. PT AWAKEN BEING CONFUSED TO PLACE. EASY TO REORIENT. TPN INFUSING WITHOUT DIFFICULTY. RIGHT UA PICC INTACT AND PATENT. SLOW PROGRESS TOWARDS DC GOALS. WILL CONTINUE TO MONITOR.
[2018-06-13 07:15] VITALS: BP 124/67
--- NOTE | 2018-06-13 15:03 | NUR ---
CHANDLER followed up with pt family to discuss SNF preferences and pt wondered about [facility] and [facility]. [facility] is not in network with pt insurance; SW faxed referral to [facility]. SW to continue to follow to assist with safe dc planning and placement.
[2018-06-13 16:00] VITALS: BP 139/67
[2018-06-14] VITALS: BP 135/65
--- NOTE | 2018-06-14 01:31 | NUR ---
PATIENT HAS NOT VOIDED THIS SHIFT BUT HAS ATTEMPTED X2. PT RESTLESS. PT BLADDER SCANNED AND 285ML FOUND TO BE IN BLADDER. CALL PLACED TO DR MORALES AND ORDER RECEIVED FOR FLOMAX 0.4MG PO BID AND MAY STRAIGHT CATH PATIENT IF HE IS UNCOMFORTABLE. THIS WAS EXPLAINED TO PT AND HE SAID IT WAS NOT NECESSARY TO STRAIGHT CATH HIM AT THIS TIME BECAUSE HE IS NOT UNCOMFORTABLE RIGHT NOW. WILL CONTINUE TO MONITOR.
[2018-06-14 04:00] VITALS: BP 166/78
--- NOTE | 2018-06-14 04:17 | NUR ---
PATIENT AWAKE MOST OF THE NIGHT. PT GETS OUT OF BED WITH SIDERAILS UP AND BED ALARM ON. PT EASILY DIRECTED. PT KNOWS HE IS IN [facility] FOR [facility] AND THAT WE ARE ALL HIS 'NURSES' TAKING CARE OF HIM IS ALSO CONFUSED. PT UNABLE TO VOID AND WAS BLADDER SCANNED; 285ML FOUND IN BLADDER. ORDER RECEIVED FROM DR MORALES TO START FLOMAX 0.4MG PO BID AND TO STRAIGHT CATH IF PT IS UNCOMFORTABLE. PT PLACED IN W/CHAIR AND WHEELED AROUND NURSES STATION ON 3WEST WHILE LINENS WERE CHANGED. PT VOICED NEED TO USE BATHROOM. PT ASSISTED TO BATHROOM AND WAS ABLE TO VOID. PT ASSISTED BACK TO BED AND IS NOW SLEEPING. PT HAS TPN INFUSING IN RT UPPER PICC LINE AT 65ML/HR. ZOSYN IV INFUSING PER ORDER. MIDLINE ABDOMEN WITH YELITZA, WELL APPROXIMATED; OPEN TO AIR. FREQUENTLY USED ITEMS AND CALL LIGHT WITHIN REACH. SIDERAILS UPX4 AND BED ALARM ON. WILL CONTINUE TO MONITOR.
[2018-06-14 08:00] VITALS: BP 144/77
[2018-06-14 12:07] LABS: HEMATOCRIT 40.5 % (42.0-52.0); HEMOGLOBIN 12.9 gm/dL (14.0-18.0); MCH 29.2 pg (26.0-34.0); MCHC 31.9 g/dL (28.0-37.0); MCV 91.3 fL (80.0-100.0); MPV 8.6 fl. (7.2-11.1); RBC 4.44 mil/uL (4.50-6.00); WBC 11.7 thou/uL (4.0-11.0)
[2018-06-14 12:24] LABS: CALCIUM 8.4 mg/dL (8.5-10.1); MAGNESIUM 2.1 mg/dL (1.8-2.4); PHOSPHORUS* 3.6 mg/dL (2.5-4.9); POTASSIUM 4.2 mmol/L (3.5-5.1)
[2018-06-14 15:59] VITALS: BP 146/73
--- NOTE | 2018-06-14 18:10 | NUR ---
PATIENT RESTING UP IN CHAIR. PATIENT HAS CONTINUED CONFUSION. PATIENT HAS NOT USED CALL LIGHT APPROPRIATELY TODAY, BED AND CHAIR ALARMS HAVE BEEN ON. PATIENT IS UNSTEADY TO WALK, GAIT BELT USED. PATIENT WORKED WITH PHYSICAL THERAPY THIS AFTERNOON. PATIENT HAS FAIR APPETITE. PATIENT HAS HAD BOWEL MOVEMENTS X 2 TODAY. PATIENT DENIES ANY NAUSEA OR PAIN. PATIENT DENIES ANY NEEDS AT THIS TIME. CALL LIGHT WITHIN REACH. WILL CONTINUE TO MONITOR.
[2018-06-15] VITALS: BP 150/66
--- NOTE | 2018-06-15 04:38 | NUR ---
PATIENT IN RECLINER ALL NIGHT. PT ALERT/ORIENTED X4 BUT REMAINS CONFUSED, FORGETFUL AND IMPULSIVE. PT FOLLOWS COMMANDS AND IS EASILY REDIRECTED. PT GETS OUT OF CHAIR QUICKLY AND BEGINS AMBULATING IN ROOM. PT'S GAIT IS VERY UNSTEADY. PT AMBULATES WELL WITH USE OF G.BELT AND WALKER WITH CLOSE STANDBY. PT VOIDS YELLOW URINE IN BATHROOM AND HAS HAD TWO LOOSE STOOLS TONIGHT. PT HAD ONE EPISODE OF INCONTINENCE WHILE IN THE RECLINER. PT WITH TPN AND ZOSYN INFUSING PER DR ORDER IN RT UPPER PICC LINE. ABLE TO FLUSH/DRAW BOTH LINES WITH NO RESISTANCE. PT DENIES PAIN/NAUSEA. PT WITH MIDLINE ABDOMINAL INCISION WITH YELITZA; WELL APPROXIMATED AND OPEN TO AIR. FREQUENTLY USED ITEMS AND CALL LIGHT WITHIN REACH. CHAIR ALARM ON. WILL CONTINUE TO MONITOR.
[2018-06-15 08:30] VITALS: BP 122/68
[2018-06-15 11:14] LABS: HEMATOCRIT 38.4 % (42.0-52.0); HEMOGLOBIN 12.4 gm/dL (14.0-18.0); MCH 29.6 pg (26.0-34.0); MCHC 32.3 g/dL (28.0-37.0); MCV 91.6 fL (80.0-100.0); MPV 9.2 fl. (7.2-11.1); RBC 4.19 mil/uL (4.50-6.00); RDW-CV 13.3 % (10.5-14.5); WBC 11.8 thou/uL (4.0-11.0)
[2018-06-15 11:24] LABS: CALCIUM 8.2 mg/dL (8.5-10.1); CREATININE 0.9 mg/dL (0.6-1.3); MAGNESIUM 2.1 mg/dL (1.8-2.4); PHOSPHORUS* 2.9 mg/dL (2.5-4.9); POTASSIUM 4.2 mmol/L (3.5-5.1)
[2018-06-15 16:54] VITALS: BP 145/72
--- NOTE | 2018-06-15 17:14 | NUR ---
PATIENT RESTING IN BED. PATIENT HAS BEEN UP TO CHAIR AND WALKED IN HALLS X 2 WITH ASSIST. PATIENT CONFUSED THIS AM BUT MORE ORIENTED THIS EVENING. PATIENT WAS ABLE TO SLEEP OFF AND ON. POOR APPETITE THIS AM BUT ATE WELL FOR LUNCH. TPN ORDERED FOR DC TONIGHT. PATIENT DENIES ANY PAIN. PATIENT DENIES ANY NEEDS AT THIS TIME. CALL LIGHT WITHIN REACH. BED ALARM ON. WILL CONTINUE TO MONITOR.
[2018-06-16] VITALS: BP 150/54
--- NOTE | 2018-06-16 04:47 | NUR ---
PATIENT SET BED ALARM OFF X1 AT BEGINNING OF SHIFT. PT SAID HE NEEDED TO GO TO THE BATHROOM. PT ASSISTED TO BATHROOM TO VOID. PT SLEPT ENTIRE NIGHT. PT ABLE TO REPOSITION HIMSELF IN BED. TPN STOPPED PER DR ORDER. ZOSYN INFUSED PER DR ORDER. PT WITH DOUBLE LUMAN PICC IN RT UPPER ARM. ABLE TO FLUSH/DRAW WITH NO RESISTANCE. PT DENIES NEEDS AT THIS TIME. FREQUENTLY USED ITEMS AND CALL LIGHT WITHIN REACH. SIDERAILS UPX3 AND BED ALARM ON. WILL CONTINUE TO MONITOR.
[2018-06-16 06:19] LABS: ALBUMIN 2.3 g/dL (3.4-5.0); CALCIUM 8.1 mg/dL (8.5-10.1); CREATININE 0.9 mg/dL (0.6-1.3); POTASSIUM 4.6 mmol/L (3.5-5.1); TOTAL BILIRUBIN 0.3 mg/dL (<0.1-1.0); TOTAL PROTEIN 5.2 g/dL (6.4-8.2)
[2018-06-16 07:55] VITALS: BP 147/72
[2018-06-16 15:30] VITALS: BP 129/73
[2018-06-16 15:46] VITALS: BP 147/72
[2018-06-16] MEDS ORDERED: LIDOCAINE PAIN1 EACH TOP (16:17)
[2018-06-16] MEDS ORDERED: DULCOLAX10 MG RECTAL (16:17)
[2018-06-16] MEDS ORDERED: CEPACOL SORETH1 EAC1 PO (16:18)
[2018-06-16] MEDS ORDERED: COLACE100 MG PO (16:19)
[2018-06-16] MEDS ORDERED: BENADRYL25 MG PO (16:19)
[2018-06-16] MEDS ORDERED: FLEET ENEMA133 ML RECTAL (16:20)
[2018-06-16] MEDS ORDERED: HALDOL 0.5 MG0.5 MG PO (16:21)
[2018-06-16] MEDS ORDERED: FLOMAX0.4 MG PO (16:21)
[2018-06-16] MEDS ORDERED: ALBUTEROL2.5 MG/0.1 INH (16:22)
[2018-06-16] MEDS ORDERED: MIRALAX17 GM PO (16:23)
[2018-06-16] MEDS ORDERED: LIPITOR 20 MG T20 M1 PO (16:23)
[2018-06-16] MEDS ORDERED: MELATONIN5 M1 PO (16:23)
[2018-06-16] MEDS ORDERED: PEPCID20 MG PO (16:24)
[2018-06-16] MEDS ORDERED: ONDANSETRON HCL4 M2 PO (16:25)
[2018-06-16] MEDS ORDERED: PROTONIX40 M1 PO (16:25)
[2018-06-16] MEDS ORDERED: TYLENOL EXTRA500 MG PO (16:26)
--- NOTE | 2018-06-16 16:32 | NUR ---
CHANDLER called and followed up with Maryana in admissions at [facility] for pt to dc to SNF today; CHANDLER faxed updated info. CHANDLER spoke with family and discussed dc plans and explained dc pending insurance auth and [facility] final decision. CHANDLER received call from Mayrana that auth is received and they scheduled transport for between 5:30 pm and 6:00 pm. Pt nurse aware. CHANDLER faxed final orders and med list to [facility] and CHANDLER informed pt and 2 of pt dtrs. [facility] ph [phone]
--- NOTE | 2018-06-16 17:49 | NUR ---
PATIENT'S PICC LINE REMOVED, PRESSURE HELD FOR 5 MINS AND PRESSURE DRESSING INTACT. REPORT CALLED TO CARLITO AT [facility]. PATIENT DISCHARGED VIA WHEELCHAIR VAN WITH ALL BELONGINGS.
--- NOTE | 2018-06-17 14:49 | EEG ---
[address] [address] EEG STUDY REPORT Name: ARCHIE VIEIRA Room: [address] IN M.R.#: [id number] Admission: 05/30/18 Attend Phys: Juan Nguyen MD Discharge: 06/16/18 Date of : [birth year] Report #: [id number] THIS REPORT FOR: //name// CC: Juan Ireland DATE OF SERVICE: 06/11/2018 This patient is being evaluated for confusion. EEG was done by placing the electrodes by standard 10-20 system of electrode placement. Both referential and sequential montages were used for recording. Background activity in this patient's EEG is about 6 Hz and 30 microvolt. This was a symmetrical activity. The patient went to sleep that is associated with bilaterally symmetrical sleep spindle and vertex sharp waves. Photic stimulation was unremarkable. Throughout the record, no active epileptiform activity was noticed. IMPRESSION: This is an abnormal electroencephalogram, which is slow on both sides. That is a nonspecific abnormality, which can occur with encephalopathy, effect of psychotropic medications, dementia, etc. Clinical correlation is recommended. <ELECTRONICALLY SIGNED> By: Jose F Schmidt MD 06/17/18 1449 [id number] Schmidt MD /nt
--- NOTE | 2018-06-17 14:49 | CON ---
[address] [address] CONSULTATION Name: ARCHIE VIEIRA Room: [address] IN M.R.#: [id number] Admission: 05/30/18 Attend Phys: Juan Nguyen MD Discharge: 06/16/18 Date of : [birth year] Report #: [id number] THIS REPORT FOR: //name// CC: Juan Ireland DATE OF SERVICE: 06/12/2018 HISTORY OF PRESENT ILLNESS: This is an 87-year-old male patient who was evaluated by me for confusion. This patient is not able to provide any reliable history. I had talked to the nurses and reviewed the record. I called the patient's home and was able to talk to the patient's granddaughter and she provided most of the history. She indicated that in the baseline, this patient does not have any significant dementia. He is legally blind, which happened because the patient had some complication from cataract surgery. Because of that, he does not drive. His is in wheelchair, but she drives. Combining together, they are able to take care of their daily activities amongst themselves and they do not need any help from the children's in general. This patient was admitted with GI problems and was having abdominal pain of several weeks and he underwent surgery for a right colon mass. He was doing okay postoperatively, but then became confused and agitated in the last couple of days. This morning, he is calm, but he was very agitated yesterday. His agitation was severe. The best the nurses can tell, it was not associated with any focal neurological deficit. He was afebrile and this agitation was not associated with any significant fever either. He did undergo a CT scan of the head, CT scan of the head was mostly unremarkable. EEG does not show any seizure activity, but is significantly slow on both sides. REVIEW OF SYSTEMS: His 14-point review of system was carried out. He is legally blind because of some surgery and some complication related to cataract. He has been legally blind for about 2-year. He is also hard of hearing and that is a very longstanding. He does not appear to have any prior strokes or any major cardiac problems. He was admitted with abdominal pain and as I understand from the record, he has been diagnosed with colon cancer with peritoneal mets. He denies any genitourinary, musculoskeletal, constitutional, dermatological, hematological symptom associated with these symptoms. He does not have any significant psychiatric history in the past. He is ALLERGIC TO LORAZEPAM as I understand. He denies any throat symptoms. PAST MEDICAL HISTORY: Negative for any stroke. The best I can tell, he does not have any significant dementia. FAMILY HISTORY: Negative for any early age stroke. SOCIAL HISTORY: He does not drink any significant amount [place] [address] CONSULTATION Name: ARCHIE VIEIRA Room: [address]#: [id number] Admission: 05/30/18 Attend Phys: Juan Nguyen MD Discharge: 06/16/18 Date of : [birth year] Report #: [id number] alcohol intake is limited to very occasional alcoholic drink. He does not smoke. PHYSICAL EXAMINATION: The patient's examination is difficult to carry out. It would appear he is very short of breath and becomes short of breath even when completing a sentence. But he cannot tell me what month it is, he could not tell me what day it is. He does appear to be confused, but does not appear to be actively hallucinating at the moment. He is very hard of hearing that makes it very difficult to do the full cognitive evaluations on him, but he cannot tell me what hospital he is in. I tried to try to see any objects he can remember at 2 minutes interval and he could not cooperate very well and his hearing deficit is a problem. Cranial nerve examination, 2-12 was attempted. The best I can tell, there does not appear to be any focality there. Exam is suboptimal especially because he is legally blind and checking for visual field deficit is not possible. Neuromuscular examinations indicate that motor, sensory, reflex and tone is symmetrical. He does not appear to have any significant cerebellar sign. He does not have any meningeal sign. I could not look at the patient's fundus. His pulses appeared to be palpable. He has no edema, cyanosis or jaundice. Cardiac examinations appear unremarkable, but respiratory examinations indicate significant respiratory difficulty. His temperature is 98. His pulse is 74. His blood pressure is 136. LABORATORY DATA: His labs indicate that he has multiple abnormalities. His calcium is low at 7.9 and his albumin is low at 2. His last TSH was normal. His white count is normal. His urine is clean. He did have a CT scan of the head, which is unremarkable. EEG demonstrates slowing on both sides. IMPRESSION: 1. Encephalopathy. The patient's clinical presentation is consistent with encephalopathy. He appeared to be short of breath. I discussed the patient with Dr. Stokes and she is working that up further and think the patient may have pneumonia. 2. Legally blind and very hard of hearing. Both of them will predispose him for hospital psychosis because of limited sensory input in an unfamiliar atmosphere of the hospital. 3. Other things which can cause confusion or contribute to encephalopathy like hypothyroidism has been excluded. His calcium is low, but his albumin is also low and his ionized calcium may be okay. 4. It does not appear that he has any central nervous system lesions like stroke because of the lack of focality as well as CT scan being normal. CT scan can miss stroke, but clinically it looked more like encephalopathy. 5. Nutritional deficiency as noted with low albumin and prealbumin that may further predispose him for encephalopathy. RECOMMENDATIONS: 1. Main management is going to [place] [address] CONSULTATION Name: ARCHIE VIEIRA Fe Room: [address] IN .R.#: [id number] Admission: 05/30/18 Attend Phys: Juan Nguyen MD Discharge: 06/16/18 Date of : [birth year] Report #: [id number] 2. Evaluation and management of the respiratory problem. The patient was discussed with Dr. Stokes and she is already working on that. 3. We will check B12 level to complete the workup. 4. I do not think more workup is possible at this time because the patient still not able to cooperate very well. We will see how he does and monitor him closely and do further workup or imaging study if he continued to be confused or become more or if his neurological examination deteriorates. I discussed that with the family and we will follow this patient along with you. Thank you very much for this referral. <ELECTRONICALLY SIGNED> By: Jose F Schmidt MD 06/17/18 1449 [id number] carmel Singleton
--- NOTE | 2018-06-17 14:49 | CON ---
[address] [address] CONSULTATION Name: ARCHIE VIEIRA Room: [address] IN .R.#: [id number] Admission: 05/30/18 Attend Phys: Juan Nguyen MD Discharge: 06/16/18 Date of : [birth year] Report #: [id number] THIS REPORT FOR: //name// CC: Juan Ireland DATE OF SERVICE: 06/12/2018 HISTORY OF PRESENT ILLNESS: This is an 87-year-old male patient who is not able to provide any reliable history. DICTATION ENDS HERE. <ELECTRONICALLY SIGNED> By: Jose F Schmidt MD 06/17/18 1449 [id number] F Schmidt MD /nt
== END 2018-06-16 17:30 | DRG 329 ==
LOC: M.ERS 05:29 → M.3W 07:22 → M.TBA-ER 07:22 → M.3W 08:27
PROVIDERS: Emergency Medicine Emergency Medical Services; Internal Medicine; Surgery; ADMIT Internal Medicine
PROC: 0DTF0ZZ Resection of Right Large Intestine, Open Approach (ICD-10-PCS; principal; 2018-06-02)
PROC: 0WJP4ZZ Inspection of Gastrointestinal Tract, Percutaneous Endoscopic Approach (ICD-10-PCS; principal; 2018-06-02)
PROC: 0WBM0ZX Excision of Male Perineum, Open Approach, Diagnostic (ICD-10-PCS; principal; 2018-06-02)
PROC: 0DBU0ZZ Excision of Omentum, Open Approach (ICD-10-PCS; principal; 2018-06-02)
PROC: 3E0436Z Introduction of Nutritional Substance into Central Vein, Percutaneous Approach (ICD-10-PCS; 2018-06-05)
PROC: 02HV33Z Insertion of Infusion Device into Superior Vena Cava, Percutaneous Approach (ICD-10-PCS; 2018-06-05)
DX: K56.600 Partial intestinal obstruction, unspecified as to cause (principal); J15.6 Pneumonia due to other Gram-negative bacteria; G93.41 Metabolic encephalopathy; E44.0 Moderate protein-calorie malnutrition; C78.6 Secondary malignant neoplasm of retroperitoneum and peritoneum; K56.7 Ileus, unspecified; E78.00 Pure hypercholesterolemia, unspecified; N40.0 Benign prostatic hyperplasia without lower urinary tract symptoms; E78.5 Hyperlipidemia, unspecified; I49.3 Ventricular premature depolarization; H35.30 Unspecified macular degeneration; H91.90 Unspecified hearing loss, unspecified ear; H54.8 Legal blindness, as defined in USA; E63.9 Nutritional deficiency, unspecified; Z96.659 Presence of unspecified artificial knee joint; Z87.891 Personal history of nicotine dependence; Z68.29 Body mass index [BMI] 29.0-29.9, adult; Z85.46 Personal history of malignant neoplasm of prostate; Z82.49 Family history of ischemic heart disease and other diseases of the circulatory system